=== PATIENT | male | born 1970 | race Caucasian/White ===

== ENCOUNTER 2019-12-28 15:21 | Emergency (ER) | payer BC ==
[~2019-12-28] VITALS: Ht 172.7 cm; Wt 124.8 kg
[2019-12-28] MEDS ORDERED: IV NORMAL SALINE 1,000ML 1,000 ML IV ONE (15:45)
[2019-12-28] MEDS ORDERED: KETOROLAC 30 MG/ML VIAL. IVP ONE (15:45)
--- NOTE | 2019-12-28 16:00 | PHYS DOC ---
Adult General Chief Complaint Chief Complaint: FLANK PAIN HPI HPI 49-year-old male presents with right flank pain. This started about 90 minutes ago. It was sudden in onset. It is moderate in intensity. It is a sharp cramping pain. The patient had a kidney stone 15 years ago and this feels exactly the chari e. He also believes he might have passed the stone couple weeks ago as he had similar pain that quickly went away. Patient denies fever or chills. Denies dysuria or increased urinary frequency. He has no other concerns or complaints at this time. Review of Systems Review of Systems Constitutional: Denies fever or chills [] Eyes: Denies change in visual acuity, redness, or eye pain [] HENT: Denies nasal congestion or sore throat [] Respiratory: Denies cough or shortness of breath [] Cardiovascular: No additional information not addressed in HPI [] GI: Denies abdominal pain, nausea, vomiting, bloody stools or diarrhea [] : Denies dysuria or hematuria [] Musculoskeletal: Right flank pain[] Integument: Denies rash or skin lesions [] Neurologic: Denies headache, focal weakness or sensory changes [] Endocrine: Denies polyuria or polydipsia [] All other systems were reviewed and found to be within normal limits, except as documented in this note. Current Medications Current Medications Current Medications Medications (Trade) Dose Ordered Sig/Emily Start Time Stop Time Status Last Admin Dose Admin Ketorolac Tromethamine (Toradol 30mg Vial) 30 mg 1X ONCE 12/28/19 15:45 12/28/19 15:46 DC Sodium Chloride 1,000 ml @ 1,000 mls/hr 1X ONCE 12/28/19 15:45 12/28/19 16:44 Allergies Allergies Allergies Coded Allergies Type Severity Reaction Last Updated Verified No Known Drug Allergies 12/28/19 No Physical Exam Physical Exam Constitutional: Well developed, obese, well nourished, no acute distress, non- toxic appearance. [] HENT: Normocephalic, atraumatic, bilateral external ears normal, oropharynx moist, no oral exudates, nose normal. [] Eyes: PERRLA, EOMI, conjunctiva normal, no discharge. [] Neck: Normal range of motion, no tenderness, supple, no stridor. [] Cardiovascular: Heart rate regular rhythm, no murmur [] Lungs & Thorax: Bilateral breath sounds clear to auscultation [] Abdomen: Bowel sounds normal, soft, no tenderness, no masses, no pulsatile masses. [] Skin: Warm, dry, no erythema, no rash. [] Back: No tenderness, no CVA tenderness. [] Extremities: No tenderness, no cyanosis, no clubbing, ROM intact, no edema. [] Neurologic: Alert and oriented X 3, normal motor function, normal sensory function, no focal deficits noted. [] Psychologic: Affect normal, judgement normal, mood normal. [] EKG EKG [] Radiology/Procedures Radiology/Procedures [] Impressions: Exam: CT abdomen and pelvis without contrast INDICATION: Right flank pain TECHNIQUE: Sequential axial images through the abdomen and pelvis obtained without IV contrast. Sagittal and coronal reformatted images were reconstructed from the axial data and reviewed. Comparisons: None FINDINGS: Heart size is normal. No pericardial effusion. Visualized lung bases are clear. No pleural effusion. Evaluation of solid organs is limited secondary to noncontrast technique. Liver, spleen, pancreas, gallbladder and adrenals are unremarkable. There is mild right-sided hydronephrosis. There is a 3 mm stone seen at or adjacent to the right ureterovesicular junction. Additionally there is a nonobstructing 2 mm calculus the lower pole of the right kidney. No other renal or ureteral calculi are identified. Bladder is decompressed not well evaluated. Prostate is not enlarged. Large and small bowel are unremarkable. Appendix is not identified. No free intra-abdominal air or fluid. No obstruction. Fat stranding is noted at the mesenteric root. Abdominal aorta has a normal course and caliber. No enlarged abdominal lymph nodes are identified. Several prominent but not enlarged lymph nodes are noted at the mesenteric root. No suspicious osseous lesions or acute fractures. IMPRESSION: 1. A 3 mm calculus at or adjacent to the right ureter vesicular junction which may represent either an obstructing calculus or recently passed calculus. 2. Additionally there is a nonobstructing 2 mm calculus in the right kidney. 3. Stranding noted at the mesenteric root with a few nonenlarged lymph nodes. Overall these findings are nonspecific can be seen in the setting of mesenteric panniculitis. Short-term follow-up imaging in 3-6 months to assess stability is recommended. Exposure: One or more of the following in the visualized dose reduction techniques were utilized for this examination: 1. Automated exposure control 2. Adjustment of the MA and/or KV according to patient size 3. Use of iterative of reconstructive technique Electronically signed by: Gill Young MD (12/28/2019 4:38 PM) [facility] [id number] DICTATED AND SIGNED BY: GILL YOUNG MD DATE: 12/28/19 [id number] CC: MARIBEL JOY MD; CHUCK TINAJERO DO ~ Course & Med Decision Making Course & Med Decision Making Pertinent Labs and Imaging studies reviewed. (See chart for details) The patient's CT does show a 3 mm sound on the right side at the ureterovesicular junction. The size is likely to pass. The patient has another stone in the right kidney. We'll discharge the patient with her prescription and sore pain medication and Flomax. He is stable for discharge at this time. [] Dragon Disclaimer Dragon Disclaimer This electronic medical record was generated, in whole or in part, using a voice recognition dictation system. Departure Departure: Impression: Primary Impression: Ureterolithiasis Disposition: 01 HOME, SELF-CARE Condition: STABLE Referrals: MARIBEL JOY MD (PCP) Patient Instructions: Kidney Stones, [id number] Scripts Tamsulosin Hcl (FLOMAX) 0.4 Mg Cap.er.24h 1 CAP PO DAILY for kidney stone for 14 Days, #14 CAP 11 Refills Prov: CHUCK TINAJERO DO 12/28/19 Hydrocodone Bit/Acetaminophen (NORCO 5-325 TABLET) 1 Each Tablet 1 TAB PO PRN Q6HRS PRN for PAIN, #10 TAB 0 Refills Prov: CHUCK TINAJERO DO 12/28/19 CHUCK TINAJERO DO Dec 28, 2019 16:00
[2019-12-28 16:35] LABS: CALCIUM 8.9 mg/dL (8.5-10.1); CREATININE 1.5 mg/dL (0.7-1.3); GFR 49.7; POTASSIUM 3.8 mmol/L (3.5-5.1)
--- NOTE | 2019-12-28 16:41 | RAD ---
Exam: CT abdomen and pelvis without contrast INDICATION: Right flank pain TECHNIQUE: Sequential axial images through the abdomen and pelvis obtained without IV contrast. Sagittal and coronal reformatted images were reconstructed from the axial data and reviewed. Comparisons: None FINDINGS: Heart size is normal. No pericardial effusion. Visualized lung bases are clear. No pleural effusion. Evaluation of solid organs is limited secondary to noncontrast technique. Liver, spleen, pancreas, gallbladder and adrenals are unremarkable. There is mild right-sided hydronephrosis. There is a 3 mm stone seen at or adjacent to the right ureterovesicular junction. Additionally there is a nonobstructing 2 mm calculus the lower pole of the right kidney. No other renal or ureteral calculi are identified. Bladder is decompressed not well evaluated. Prostate is not enlarged. Large and small bowel are unremarkable. Appendix is not identified. No free intra-abdominal air or fluid. No obstruction. Fat stranding is noted at the mesenteric root. Abdominal aorta has a normal course and caliber. No enlarged abdominal lymph nodes are identified. Several prominent but not enlarged lymph nodes are noted at the mesenteric root. No suspicious osseous lesions or acute fractures. IMPRESSION: 1. A 3 mm calculus at or adjacent to the right ureter vesicular junction which may represent either an obstructing calculus or recently passed calculus. 2. Additionally there is a nonobstructing 2 mm calculus in the right kidney. 3. Stranding noted at the mesenteric root with a few nonenlarged lymph nodes. Overall these findings are nonspecific can be seen in the setting of mesenteric panniculitis. Short-term follow-up imaging in 3-6 months to assess stability is recommended. Exposure: One or more of the following in the visualized dose reduction techniques were utilized for this examination: 1. Automated exposure control 2. Adjustment of the MA and/or KV according to patient size 3. Use of iterative of reconstructive technique Electronically signed by: Gill Griffiths MD (12/28/2019 4:38 PM) [id number]
[2019-12-28 16:42] LABS: ALBUMIN 4.1 g/dL (3.4-5.0); ALBUMIN/GLOBULIN RATIO 1.2 (1.0-1.7); TOTAL BILIRUBIN 0.6 mg/dL (0.2-1.0); TOTAL PROTEIN 7.5 g/dL (6.4-8.2)
[2019-12-28] MEDS ORDERED: HYDR-3165 PO (16:50)
[2019-12-28] MEDS ORDERED: TAMS0.4C97 PO (16:50)
[2019-12-28 16:58] LABS: BASO % 1 % (0-3); EOS # 0.2 x10^3/uL (0.0-0.7); EOS % 3 % (0-3); HEMATOCRIT 45.3 % (39.0-53.0); HEMOGLOBIN 15.2 g/dL (13.0-17.5); LYMPH # 1.3 x10^3/uL (1.0-4.8); LYMPH % 25 % (24-48); MEAN CORPUSCULAR HEMOGLOBIN 29 pg (25-35); MEAN CORPUSCULAR HGB CONC 34 g/dL (31-37); MEAN CORPUSCULAR VOLUME 87 fL (79-100); MONO # 0.5 x10^3/uL (0.0-1.1); MONO % 9 % (0-9); NEUT # 3.2 x10^3uL (1.8-7.7); NEUT % 63 % (31-73); PLATELET COUNT 238 x10^3/uL (140-400); RED BLOOD COUNT 5.19 x10^6/uL (4.30-5.70); RED CELL DISTRIBUTION WIDTH 13.7 % (11.5-14.5); WHITE BLOOD COUNT 5.1 x10^3/uL (4.0-11.0)
[2019-12-28 17:02] LABS: BACTERIA,URINE FEW /HPF (0-FEW); BILIRUBIN,URINE NEG (NEG); CLARITY,URINE CLEAR; COLOR,URINE AMBER; GLUCOSE,URINE NEG (NEG); NITRITE,URINE NEG (NEG); SQUAMOUS EPITHELIAL CELL,UR OCC /LPF; WBC,URINE 0 /HPF (0-4)
[2019-12-28 17:10] VITALS: BP 151/86
== END 2019-12-28 17:19 | disposition home or self-care (01) ==
LOC: ER 15:21
DX: N20.1 Calculus of ureter (principal)
CPT/HCPCS: 36415; 74176; 80053; 81001; 85025; 96374; 99285; J1885; J7030

== ENCOUNTER → 2020-07-27 | Outpatient (CLI) | payer BC ==
[~2020-07-27] MED LIST: HYDR-3165 PO; TAMS0.4C97 PO
--- NOTE | 2020-07-27 14:41 | RAD ---
EXAMINATION: ELBOW LEFT 3V CLINICAL HISTORY: LEFT ELBOW PAIN, CONCERN FOR LIGAMENT/MUSCLE TEAR TECHNIQUE: ELBOW LEFT 3V Number of images/views: 3 COMPARISON: None FINDINGS: Joint spaces and alignment maintained. No acute fracture. No significant joint effusion. IMPRESSION: No acute osseous abnormality. Electronically signed by: Pipo Perez DO (07/27/2020 2:38 PM) [id number]
== END | disposition home or self-care (01) ==
LOC: RAD 14:15
PROVIDERS: ATTEND Orthopaedic Surgery
DX: M25.522 Pain in left elbow (principal)
CPT/HCPCS: 73080

== ENCOUNTER → 2020-08-09 | Outpatient (CLI) | payer BC ==
[~2020-08-09] MED LIST changes: +IOHEXOL 240 MG/ML 50ML VIAL. ONE; +IOHEXOL 240 MG/ML 50ML VIAL. PO ONE; +IOHEXOL 300 MG/ML 75 ML VIAL. IV ONE
--- NOTE | 2020-08-09 09:42 | RAD ---
CT abdomen and pelvis with contrast History: Follow-up abnormal CT Technique: After the administration of intravenous contrast, CT imaging was performed of the abdomen and pelvis. Oral contrast was also given. Multiplanar images are reviewed. Exposure: One or more of the following individualized dose reduction techniques were utilized for this examination: 1. Automated exposure control 2. Adjustment of the mA and/or kV according to patient size 3. Use of iterative reconstruction technique. Comparison: 12/28/2019 Findings: There is stable 0.3 cm left lower lobe nodule at the lung base image 12 series 2. There is no significant abnormality of the liver, spleen, pancreas, adrenal glands. Both kidneys enhance without hydronephrosis. There is a 1.2 cm hypodense lesion of the inferior left kidney with density measurements more suggestive of cyst 16 Hounsfield units. Previously seen small right renal calculus is not completely visualized on this exam. Gallbladder is present without obvious intraluminal abnormality by CT, appearance of mild wall enhancement greater near fundus. There is mild lumbar spondylosis greatest at L4-5 and L5-S1. There is persistent hazy and strandy change of the mesenteric fat more centrally and on the left, somewhat decreased more superiorly in the abdomen at which previously there was some mild nonorganized fluid density present. There are again interspersed small nodes which are overall similar, largest of these about 0.6 cm short axis dimension. No new significantly enlarged nodes are identified. Small bilateral inguinal nodes are stable. Impression: 1. There is persistent although somewhat decreased strandy and hazy density of the mesenteric fat, interspersed nonenlarged nodes stable. Sclerosing mesenteritis would be included in the differential. While nonspecific findings can be associated with etiologies such as lymphoma or other malignancies, mild interval improvement would make these less likely. 2. There is nonspecific mild wall enhancement of the gallbladder near the fundus, gallbladder pathology more accurately evaluated by ultrasound. 3. There is likely small cyst of the inferior left kidney. 4. There is stable small left lower lobe lung nodule near the base, optional follow-up could be performed such as in 12 months if increased risk factors for neoplasm as per revised Fleischner guidelines, otherwise no additional follow-up needed if low risk factors. Electronically signed by: Loc Upton MD (08/09/2020 9:39 AM) [id number]
== END | disposition home or self-care (01) ==
LOC: CT 07:34
PROVIDERS: ATTEND Family Medicine
DX: N28.1 Cyst of kidney, acquired (principal); R93.5 Abnormal findings on diagnostic imaging of other abdominal regions, including retroperitoneum; R91.1 Solitary pulmonary nodule
CPT/HCPCS: 74177; Q9966; Q9967